=== PATIENT | male | born 1985 ===

== ENCOUNTER 2023-03-13 08:55 | Emergency (ER) | payer MEDICAID, SELFPAY ==
[2023-03-13 09:02] VITALS: BP 147/96; PULSE 95; RESP 18; TEMP 36.7; O2SAT 99; BMI 27.1
--- NOTE | 2023-03-13 14:12 | MHC.RECOVSUP ---
Attempted to meet with pt in waiting room for [facility] and ATS support but pt left and was unable to be seen.
== END 2023-03-13 18:54 | disposition left against medical advice (07) ==
PROVIDERS: Emergency Provider Emergency Medicine
DX: F11.20 Opioid dependence, uncomplicated (principal); F19.10 Other psychoactive substance abuse, uncomplicated
CPT/HCPCS: 99281